=== PATIENT | male | born 1965 | race Caucasian/White ===

== ENCOUNTER 2020-04-15 06:34 | Day surgery (SDC) | payer MEDICAID ==
[~2020-04-15] VITALS: Ht 180.3 cm; Wt 85.3 kg
--- NOTE | ~2020-04-15 | HP ---
PATIENT: MADISYN MARCELINO MEDICAL RECORD: [id number] ACCOUNT: [id number] LOCATION:[facility] : 61 ADMISSION DATE: 04/15/20 PCP: BRINDA QUIROZ MD HISTORY AND PHYSICAL EXAMINATION HISTORY OF PRESENT ILLNESS: Mr. Marcelino is a 55-year-old male with large left nasal mass. He is admitted for excision of the nasal mass. PAST MEDICAL HISTORY: Includes reflux. CURRENT MEDICATIONS: Dexilant, alprazolam, Lipitor. ALLERGIES: No known drug allergies. PHYSICAL EXAMINATION: GENERAL: Normal. FACE: Normal. EYES: Normal. EARS: Canals and TMs are normal. 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 ORAL CAVITY AND OROPHARYNX: Normal. NECK: Normal. NEUROLOGIC: Cranial nerves are normal. CHEST: Clear. CARDIOVASCULAR: Regular rate and rhythm, no murmur. EXTREMITIES: Normal. 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 PLAN: Endoscopic wide local excision of left nasal mass. TRANSINT:[id number] Voice Confirmation ID: [id number] DOCUMENT ID: [id number] JUDITH SINGH MD CC: [id number] DICTATION DATE: 04/12/20 1035 CAB SUPERVISOR: 04/12/20 1208 PRE [facility] [address] [place] [id number]
--- NOTE | ~2020-04-15 | OP ---
PATIENT NAME: MADISYN GONZALEZ MEDICAL RECORD: [id number] :61 LOCATION:D.[facility] ADMISSION DATE: SURGEON: LEONEL NEVILLE MD DATE OF OPERATION: 04/15/2020 PREOPERATIVE DIAGNOSIS: Left nasal mass, nasal obstruction. POSTOPERATIVE DIAGNOSIS: Left nasal mass, nasal obstruction. PROCEDURE: I did my portion of the procedure first followed by Dr. Albert who did a hernia repair. Endoscopic excision left nasal mass is my procedure. SURGEON: Leonel Neville MD ANESTHESIA: General orotracheal. BLOOD LOSS: Less than 5 cc. SPECIMENS: Left nasal mass. NASAL PACKING: None. COMPLICATIONS: None. DISPOSITION: Recovery stable. FINDINGS: At first, he appeared to have a single large papillomatous mass in the left nasal cavity, but after decongestion and careful examination with the scope, he had separate papillomatous lesions originating from the mid nasal septum, the inferior turbinate and the middle turbinate. These were not contiguous lesions, these were all separate lesions. DESCRIPTION OF PROCEDURE: He was brought to the operating room and placed in supine position, sedated and intubated by anesthesia. The eyes were taped. Table was turned 90 degrees. Head drapes applied and he was positioned for nasal surgery. Both sides of the nose were examined. He had a synechia between the inferior turbinate and the septum inferiorly on the right side that was injected and divided and Afrin pledgets were placed on the right side of the nose. No further surgery was done on the right side. Then on the left side, inferior turbinate, nasal septum, and root of the middle turbinate were injected with 1 cc of 1% lidocaine with 1:100,000 epinephrine and 3 Afrin pledgets were placed in that side of the nose. Then, all the Afrin pledgets were removed from the right side of the nose. The scopes were used to examine the nose. Inferior middle turbinate, middle meatus, nasal vault, nasopharynx all normal as was the septum. No mucosal lesions at all. Then, all the Afrin pledgets were removed from the left side and with a #7 suction and the endoscope, I was able to delineate that there were separate papillomatous lesion emanating from the septum. The middle turbinate and the inferior turbinate, these were all separate, it was not a continuous tumor. The floor of the nose was clear. The nasal vault was clear and actually there was nothing above about the middle of the middle turbinate. All that was cleaned, the nasopharynx was clean. Starting with the septum, I used caudal to incise with some normal mucosa around it and remove, that lesion was about a centimeter and a half. This was down on bony cartilaginous septum, that was completely removed and sent for path. Then I addressed the middle turbinate, basically with scissors, trimmed off about a OPERATIVE REPORT [id number] LISA,MADISYN third of the middle turbinate anteriorly and that removed the entire tumor from the middle turbinate. I then addressed the inferior turbinate. This was mostly up high, close to the uncinate and down to about the middle of that turbinate that was excised as well. I would say the tumor base for that was about 1-1/2 x 2 cm that was completely excised. There was not really very much bleeding. I used some suction cautery to stop some bleeding from the middle turbinate, none on the septum, then a little bit on the inferior turbinate, I was able to rinse that out. He had a large maxillary ostia on the left side, well over 1 cm in size. The maxillary sinus looked clean. All the edges of that ostia looked clean. They were examined really closely. All the mucosa back to the nasopharynx, nasal vault, there was really no other mucosal lesions. I coated those raw surfaces with FloSeal, outfractured that inferior turbinate on the left side for better postop visualization. There was really no bleeding at the end of the procedure. They went on to prep and drape this abdomen for hernia repair. TRANSINT:[id number] Voice Confirmation ID: [id number] DOCUMENT ID: [id number] LEONEL NEVILLE MD CC: [id number] DICTATION DATE: 04/15/20 1034 PEANUT GRADER: 04/15/20 2100 [facility] 04/15/[address] [facility] [address] [place] [id number]
[~2020-04-15 06:34] MED LIST: LISINOPRIL10 MG PO; PROTONIX40 MG PO; ULTRAM50 MG PO; XANAX0.5 MG PO
[2020-04-15 06:56] LABS: BASOPHILS 0.4 % (0-2); HEMATOCRIT 46.8 % (42.0-54.0); HEMOGLOBIN 15.8 g/dL (13.5-17.5); IMMATURE GRANULOCYTES 1.9 % (0-5); LYMPHOCYTES 13.6 % (15-50); MCH 31.4 pg (26.0-34.0); MCHC 33.8 g/dL (31.0-37.0); MEAN PLATELET VOLUME 11.6 fL (7.4-10.4); MONOCYTES 3.7 % (2-11); NEUTROPHILS 78.4 % (40-80); PLATELET COUNT 176 10x3/uL (130-400); RBC 5.03 10x6/uL (4.20-6.10); WBC 7.9 10x3/uL (4.8-10.8)
[2020-04-15 06:57] LABS: CALCIUM 9.4 mg/dL (8.5-10.1); CARBON DIOXIDE 24.6 mmol/L (21.0-32.0); CREATININE - SERUM 1.4 mg/dL (0.6-1.3); POTASSIUM - SERUM 4.6 mmol/L (3.5-5.1)
[2020-04-15] MEDS ORDERED: LIPITOR10 MG PO (07:22)
[2020-04-15 07:27] VITALS: BP 123/87; Ht 180.3 cm; Wt 85.3 kg
--- NOTE | 2020-04-15 12:45 | NUR ---
PT STATES HAVING PAIN BUT DOES NOT WANT TO TAKE PAIN MEDICATION YET. HE SAID HE WANTED SOMETHING TO EAT BEFORE TAKING PAIN MED. PT IS CURRENTLY EATING ICE CREAM. WILL CALL WHEN READY TO TAKE PAIN MED. WILL CONTINUE TO MONITOR.
--- NOTE | 2020-04-15 13:47 | NUR ---
DC INSTRUCTIONS GIVEN TO PT/SPOUSE. STATE UNDERSTANDING. PT VOIDED. DC'D IV CATH FULLY INTACT. WILL DC SHORTLY.
--- NOTE | 2020-04-15 14:05 | NUR ---
PT LEFT UNIT VIA WC AT 1400
--- NOTE | 2020-04-16 15:11 | OP ---
PATIENT NAME: MADISYN GONZALEZ MEDICAL RECORD: [id number] :61 LOCATION:D.[facility] ADMISSION DATE: SURGEON: JAYSON KENNY MD DATE OF OPERATION: 04/15/2020 PREOPERATIVE DIAGNOSIS: Symptomatic enlarging left inguinal hernia. POSTOPERATIVE DIAGNOSES: 1. Symptomatic enlarging left indirect inguinal hernia. 2. Left cord lipoma. PROCEDURES: 1. Open left indirect inguinal hernia repair with bilayer preperitoneal polypropylene mesh. 2. Excision of left cord lipoma. SURGEON: Jayson Kenny MD HEALTHCARE RISK CONTROL CONSULTANT: None. BLOOD LOSS: Minimal. ANESTHESIA: General. COMPLICATIONS: None. The risks, possible complications and alternatives to the procedure were explained to the patient. He elects to proceed. I saw the patient preoperatively. I marked the appropriate side. OPERATIVE COURSE: The patient was conveyed the operating room electively on 04/15/2020. General anesthesia was induced by the anesthesia staff. The abdomen and genitals were sterilely prepped and draped. A transverse incision was accomplished in the left groin. Sharp dissection was carried down through skin and subcutaneous tissue as well as Ana fascia. The external oblique aponeurosis was then opened along the direction of its fibers. I bluntly dissected down through the internal oblique and transverse abdominis muscles. A preperitoneal pocket was fashioned bluntly. There was no direct component. No femoral component. An indirect hernia was reduced in its entirety. There was a cord lipoma. I clamped across the vascular pedicle going to the cord lipoma. The cord lipoma was excised. I then ligated the vascular pedicle with a 3-0 Vicryl suture. I then cut out 2 ovals of polypropylene mesh and sutured the 2 ovals together with a running #1 Surgidac. The mesh was placed in the preperitoneal space. Once I was satisfied with placement of the mesh, I allowed the transverse abdominis muscle and internal oblique muscles to come together and these muscles were then approximated with multiple interrupted horizontal mattress 0 Surgidacs. The external oblique aponeurosis was closed with running #1 Vicryls. Ana fascia was approximated with interrupted 3-0 Vicryls. The subdermis was approximated with interrupted 3-0 Vicryls. The skin was approximated with a running intracuticular 4-0 Vicryl. Benzoin and Steri-Strips were applied. The patient was then extubated and conveyed to post-anesthesia care unit where OPERATIVE REPORT [id number] LISAMADISYN he was in stable condition. He is going to be dismissed home on hydrocodone as well as Colace. I will see him in the office in 2-3 weeks. He can shower, but is not to get his incision submerged. TRANSINT:[id number] Voice Confirmation ID: [id number] DOCUMENT ID: [id number] JAYSON KENNY MD at 1511 CC: JUDITH SINGH [id number] DICTATION DATE: 04/15/20 1330 DIRECTOR OF RETAIL MARKETING: 04/16/20 0014 [facility] 04/15/20 [facility] [address] [place] [address]
== END 2020-04-15 14:00 | disposition home or self-care (01) ==
LOC: D.OPS 06:34 → D.PAN 08:30 → D.OPS 08:30
PROVIDERS: Surgery; ATTEND Otolaryngology
DX: K40.90 Unilateral inguinal hernia, without obstruction or gangrene, not specified as recurrent (principal); D17.6 Benign lipomatous neoplasm of spermatic cord; E78.00 Pure hypercholesterolemia, unspecified; I10 Essential (primary) hypertension; R10.2 Pelvic and perineal pain; J34.89 Other specified disorders of nose and nasal sinuses